=== PATIENT | female | born 1985 | race Caucasian/White ===

== ENCOUNTER → 2021-04-12 | Outpatient (CLI) ==
[~2021-04-12] MED LIST: ACET-907 PO; IBUP-1022 PO; VITMTA PO
== END ==
LOC: M LABSMTC 09:31
PROVIDERS: ATTEND Anesthesiology
DX: Z20.828 Contact with and (suspected) exposure to other viral communicable diseases (principal); Z11.59 Encounter for screening for other viral diseases

== ENCOUNTER 2021-04-17 07:56 | Day surgery (SDC) | payer OTHER ==
[~2021-04-17] VITALS: Ht 162.6 cm; Wt 78.8 kg
[~2021-04-17 07:56] MED LIST changes: +LIDOCAINE 1% MDV 20ML VIAL SQ PRN; +LR 1,000 ML IV ONE
[2021-04-17] MEDS ORDERED: fentaNYL 250 MCG/5 ML INJECTION (J3010) As Ordered ONE (10:14)
[2021-04-17] MEDS ORDERED: MIDAZOLAM INJ 2MG/2ML VIAL (J2250 PER 1MG) As Ordered ONE (10:15)
[2021-04-17] MEDS ORDERED: LIDOCAINE 2% 100MG/5ML SDV (FOR ANES.) As Ordered ONE (10:15)
[2021-04-17] MEDS ORDERED: propofoL 200 MG/20 ML VIAL As Ordered ONE (10:15)
[2021-04-17] MEDS ORDERED: ROCURONIUM BROMIDE 50 MG/5 ML VIAL As Ordered ONE (10:15)
[2021-04-17] MEDS ORDERED: dexameTHASONE 4 MG/ML 1ML VIAL (J1100 PER 1MG) As Ordered ONE ×2 (10:15→11:23)
[2021-04-17] MEDS ORDERED: ONDANSETRON 4MG/2ML VIAL As Ordered ONE (10:15)
[2021-04-17] MEDS ORDERED: LIDOCAINE W/EPINEPHRINE 1% 20ML VIAL As Ordered ONE (10:40)
[2021-04-17] MEDS ORDERED: SUGAMMADEX SODIUM 500 MG/5 ML VIAL (BRIDION) As Ordered ONE (11:20)
[2021-04-17] MEDS ORDERED: ONDANSETRON 4MG/2ML VIAL IV PRN (12:15)
[2021-04-17] MEDS ORDERED: fentaNYL 100 MCG/2 ML INJECTION (J3010) IV PRN (12:15)
[2021-04-17] MEDS ORDERED: oxyCODONE 5MG TAB PO PRN (12:15)
[2021-04-17] MEDS ORDERED: LR 1,000 ML IV SCH ×2 (12:15→12:20)
[2021-04-17 13:15] VITALS: BP 132/86
--- NOTE | 2021-04-18 12:05 | RO ---
OPERATIVE NOTE DATE OF OPERATION: 04/17/2021 PREOPERATIVE DIAGNOSIS: Nonrestorable teeth. POSTOPERATIVE DIAGNOSIS: Nonrestorable teeth. PROCEDURE PERFORMED: Extraction of teeth 1, 15, 16, 17, T and 32. SURGEON: Cong Aguilar DMD. EPIC DIRECTOR: ANESTHESIA: None. ESTIMATED BLOOD LOSS: 10 mL. SPECIMEN: Teeth. COMPLICATIONS: None. DESCRIPTION OF PROCEDURE: The rest of this dictation will be completed in [facility].
== END 2021-04-17 13:28 | disposition home or self-care (01) ==
LOC: M SDC 07:56
PROVIDERS: ATTEND Dentist Oral and Maxillofacial Surgery
DX: K02.9 Dental caries, unspecified (principal)
CPT/HCPCS: 81025; 88300; D7210; D9223; J1100; J2250; J2405; J3010